=== PATIENT | female | born 2000 | race Caucasian/White ===

== ENCOUNTER 2022-06-07 12:42 | Emergency (ER) | payer SELFPAY | END 2022-06-07 14:30 | disposition home or self-care (01) | LOC: VM.ED 12:42 | DX: S92.354A Nondisplaced fracture of fifth metatarsal bone, right foot, initial encounter for closed fracture (principal); Z72.0 Tobacco use; X50.1XXA Overexertion from prolonged static or awkward postures, initial encounter | CPT/HCPCS: 73620-RT; 99283 ==